=== PATIENT | male | born 1980 | race Caucasian/White ===

== ENCOUNTER 2022-11-22 12:43 | Emergency (ER) | payer MEDICAID ==
[~2022-11-22] VITALS: Ht 175.3 cm; Wt 78.2 kg
[2022-11-22 12:47] VITALS: TEMP 98.9
[2022-11-22] MEDS ORDERED: HYDROCODONE/ACETAMINOPHEN 5-325 MG TABLET PO ONE (14:30)
[2022-11-22 14:58] LABS: APPEARANCE,URINE CLEAR (CLEAR); BILIRUBIN,URINE NEGATIVE (NEGATIVE); COLOR,URINE YELLOW (YELLOW); GLUCOSE, URINE (UA) NEGATIVE (NEGATIVE); KETONES,URINE NEGATIVE (NEGATIVE); LEUKOCYTE ESTERASE ,URINE NEGATIVE (NEGATIVE); NITRATE,URINE NEGATIVE (NEGATIVE); OCCULT BLOOD,URINE NEGATIVE (NEGATIVE); PROTEIN,URINE TRACE mg/dL (NEGATIVE); SPECIFIC GRAVITIY, URINE 1.031 (1.003-1.030); UROBILINOGEN,URINE <=1.0 mg/dL (<=1.0)
[2022-11-22 15:21] VITALS: BP 133/72; PULSE 74; RESP 16
[2022-11-22] MEDS ORDERED: LIDO700A15 TP (15:43)
[2022-11-22] MEDS ORDERED: CYCL-448 PO (15:43)
[2022-11-22] MEDS ORDERED: LIDOCAINE 5% TRANSDERMAL PATCH TD ONE (15:45)
== END 2022-11-22 16:17 | disposition home or self-care (01) ==
LOC: EMS 12:46
DX: M54.50 Low back pain, unspecified (principal)
CPT/HCPCS: 72100; 81003; 99284